=== PATIENT | female | born 1940 | race Caucasian/White ===

== ENCOUNTER 2016-08-16 16:23 | Inpatient (IN) | payer MEDICARE, OTHER ==
[~2016-08-16 16:23] MED LIST: LIDOCAINE 1% 5 ML (METHYLPARABEN FREE) EPI ONE
[2016-08-16] MEDS ORDERED: ATROPINE 1 MG/10 ML PFS IV ONE (16:57)
[2016-08-16 17:01] LABS: AUTOMATED BASOPHIL 1.6 % (0-2); AUTOMATED EOSINOPHIL 1.4 % (0-5); AUTOMATED LYMPH 26.1 % (17-44); AUTOMATED MONOCYTE 6.4 % (3-10); AUTOMATED NEUTROPHIL 64.5 % (45-76); MPV 8.1 fL (7.4-10.4)
--- NOTE | 2016-08-16 17:04 | EDPRACDOC ---
- General Information Chief Complaint: Arrhythmia Stated Complaint: SYNCOPE Time Seen by Provider: 08/16/16 16:28 Information Source: Patient Mode Of Arrival: Car Home Medications: Home Medications Atorvastatin Calcium 40 mg PO QHS 08/16/16 Lorazepam [Ativan] 0.25 - 0.5 mg PO BID PRN 08/16/16 Methimazole 5 mg PO DAILY 08/16/16 Allergies/Adverse Reactions: Allergies Allergy/AdvReac Type Severity Reaction Status Date / Time No Known Allergies Allergy Verified 08/16/16 16:43 - History of Present Illness Onset: YESTERDAY HPI: PASSED OUT, VERTIGO BEFORE. VERTIGO SEVERAL TIMES IN PAST SEVERAL WEEKS. NO CHEST PAIN, NO CHEST PRESSURE, NO SHORTNESS OF BREATH, NO LEG SWELLING, ABLE TO WORK AND DO DAILY ACTIVITIES PER NORMAL. IN FACT PATIENT WORKED ALL DAY TODAY BEFORE GOING TO GO SEE HER PRIMARY CARE PHYSICIAN AT PCP 'S OFFICE PATIENT WAS BRADYCARDIC AND REFERRED TO THE EMERGENCY DEPARTMENT. ED Past Medical History - History Reviewed Yes Nurses notes reviewed and agree except as marked - Patient Medical History Cardiac History: Reports: Hypercholesterolemia Psychological History: Reports: Anxiety. Denies: Depression Systemic History: Reports: Hyperthyroidism Surgical History: Reports: Tonsillectomy/Adnoidectomy - Social Medical History Smoking Status: Heavy tobacco smoker (5 or more cigarettes/day or daily pipe/ cigar) - Physical Exam Constitutional: Alert (Awake), No apparent distress Oriented to: Time, Person, Place Last recorded Vital Signs: Last Vital Signs Temp 97.9 F 08/16/16 16:38 Pulse 41 L 08/16/16 16:52 Resp 18 08/16/16 16:52 BP 195/75 H 08/16/16 16:52 Pulse Ox 99 08/16/16 16:52 Oxygen Pulse Oxygen Saturation 99 O2 Device Room Air Oxygen Flow Rate Fraction of Inspired Oxygen ( FIO2) - HEENT Head: Normal ( normocephalic) Eye Exam: Normal (PERRL, EOMI, Sclera white) Oropharynx: Normal (Pharynx:Moist without exudate,Gums-no swelling) Tympanic Membrane: Normal ENT EAC: Normal TMJ: Normal Nose: No Symptoms Reported (septum midline) Neck: Normal (FROM, trachea at midline) - Respiratory/Cardiovascular Respiratory: Normal - CTA (BBS clear to auscultation without adventitious sounds ) Cardiovascular: Bradycardia. negative: Diastolic murmur, Systolic murmur - GI Auscultation: Normal (NABS) Palpation: Normal (Soft,No rebound or guarding, non distended) Tenderness: Non tender Amin's Sign: Negative - Musculoskeletal Back: Normal (Non-Tender) Extremities: Normal (Normal tone, Pulses 2+ No cyanosis or edema, FROM) - Integumentary Skin: Normal, Warm, Dry Lymphatics: Normal (no adenopathy) - Neurologic Memory Impaired: Normal Motor Function: Normal (Normal tone, Pulses 2+ No cyanosis or edema, FROM) Cranial Nerve: Normal (CN II-X11 intact sensation, strength 5/5) Cerebellar: Normal Mood Description: Normal Perception: Normal - Results 08/16/16 16:50 08/16/16 16:50 - EKG EKG #1 EKG Time: 16:41 -: Yes EKG interpreted by me Rate: bpm: 44 [place]: Normal Rhythm: Junctional Block: 3 Hypertrophy: None ST: Nonsp EKG #2 EKG Time: 16:52 -: Yes EKG interpreted by me Rate: bpm: 42 [place]: Normal Rhythm: Junctional Block: 3 Hypertrophy: None ST: Nonsp - Diagnostic Imaging Chest Image interpreted by: Radiologist Patient Name: NICOLAS OTERO LOC: ED : 1940 AGE: 76 Order Date:08/16/16 Date of Service:09/27 Report # [id number] Ord Physician: Katalina Pugh MD Exam # [id number] Emergency Physician: Katalina Pugh MD Exam(s): [id number] RAD/DG CHEST PORTABLE CLINICAL DATA: Bradycardia. Syncope and dizziness. EXAM: PORTABLE CHEST - 1 VIEW COMPARISON: None. FINDINGS: Heart size is normal. There is mild prominence of the interstitium. No focal airspace disease is present. There is no edema or effusion to suggest failure. Emphysematous changes are noted. Degenerative changes are noted at the right shoulder. IMPRESSION: 1. No acute cardiopulmonary disease. 2. Emphysema. 3. Asymmetric degenerative changes of the right shoulder. Electronically Signed By: Vel Escalante M.D. On: 08/16/2016 17:08 Electronically Signed By: Vel Escalante MD Electronically Signed Date/Time: [id number] Dictate Date/Time: 08/16/161704 Technologist: Henry Sawyer Transcribed By: Dmitry Transcribed Date/Time: 08/16/16 1708 - Departure Final Diagnosis: Heart block AV complete, Hypertension Instructions: Chronic Hypertension (ED) Referrals: Kaleigh Garvey DO [Primary Care Provider] - One Week Decision to Admit Time: 18:02 Decision to admit date: 08/16/16 Decision to admit: from ED - Physician Consulted Cardiology Time Called: 17:04 Provider Called: Henry Carter Time Skating [employer] Returned Call: 17:04 (HOSP ADMIT, WILL SEE IN CONSULTATION) Hospitalist Time Called: 18:00 Provider Called: Armani Gonzalez Time Skating [employer] Returned Call: 18:02
--- NOTE | 2016-08-16 17:11 | DIRPT ---
CLINICAL DATA: Bradycardia. Syncope and dizziness. EXAM: PORTABLE CHEST - 1 VIEW COMPARISON: None. FINDINGS: Heart size is normal. There is mild prominence of the interstitium. No focal airspace disease is present. There is no edema or effusion to suggest failure. Emphysematous changes are noted. Degenerative changes are noted at the right shoulder. IMPRESSION: 1. No acute cardiopulmonary disease. 2. Emphysema. 3. Asymmetric degenerative changes of the right shoulder. Electronically Signed By: Vel Escalante M.D. On: 08/16/2016 17:08
[2016-08-16 17:14] LABS: BLOOD UREA NITROGEN 10 MG/DL (7-17); CALCIUM 9.6 MG/DL (8.4-10.2); CALCULATED OSMOLALITY 270 MOs/Kg (270-290); CHLORIDE 106 mEq/L (98-107); GLUCOSE 98 mg/dL (70-99); PARTIAL THROMB. TIME 22.8 SEC (22-35); SODIUM LEVEL 141 mEq/L (137-146); TOTAL PROTEIN 7.9 G/DL (6.3-8.2)
--- NOTE | 2016-08-16 18:27 | HIMCONSMED ---
Consultation Date: 08/16/16 Requesting Physician: Henry Carter Consulting Doctor: Armani Gonzalez Consult Reason: Medical Management PRIMARY CARE PROVIDER: Dr. Garvey HPI: The patient is a very active 76 yo woman with hyperthyroidism who presents after an episode of syncope yesterday. She still works at [employer] and has continued to work even after her syncopal episode. She was at home in her bedroom yesterday and was going to talk to her daughter on the phone, when she fell over and had a complete loss of consciousness; she reports she did hit her head. The syncope was not witnessed, but she thinks she was not unconscious for very long. She did not have any confusion afterward and she did not have any sensation beforehand that she was about to pass out. She waited until the next day to seek medical treatment; she went to her doctor's office and was found to have a heart rate in the 40s, and was sent to the emergency department for further management. She denies chest pain. She had not noticed that her heart rate was slow. Onset: yesterday for the syncope; the low heart rate onset is unknown. Duration : intermittent. Location: generalized. Character: complete sudden loss of consciousness. Alleviated by: Nothing. Exacerbated by: Nothing. Associated Symptoms: No chest pain or palpitations. No fever or chills. No shortness of breath or wheezing. She does feel fatigued. She reports she had an upper respiratory infection last week. Treatments: none at home except usual medications. Chief Complaint: syncope and low heart rate - Past Medical and Surgical History Cardiac History: Reports: Hypercholesterolemia GI/ History: Reports: Gastroesophageal Reflux Systemic History: Reports: Hyperthyroidism Psychological History: Reports: Anxiety. Denies: Depression Past Surgical History: Reports: Tonsillectomy/Adnoidectomy Allergies No Known Allergies Allergy (Verified 08/16/16 16:43) Home Medications Atorvastatin Calcium 40 mg PO QHS 08/16/16 Lorazepam [Ativan] 0.25 - 0.5 mg PO BID PRN 08/16/16 Methimazole 5 mg PO DAILY 08/16/16 - Social History Travel Outside of US in the Last 3 Months?: No Smoking Status: Heavy tobacco smoker (5 or more cigarettes/day or daily pipe/ cigar) Social History: Denies: Alcohol Use, Substance Use Disorder - Family History Reports: Cancer (PGM: cancer involving 50% of face. Mother: melanoma (no mets)) , Blood Disorders (Mother: severe anemia req transfusions. 77yo.), Other ( Father: rheumatoid arthritis, at end kidney disease, 97yo. Uncle: Vikki). Denies: Stroke, Cardiac Disorders MGM: in her 90s of old age. MGF: of TB PGF: of old age. Had a goiter. No known family history of PA, CHF, arrhythmia, stroke, diabetes, blood clots. - Review of Systems GENERAL: No Fever, chills, or diaphoresis. Positive for fatigue/malaise. HEENT: No ear pain or discharge. No nasal discharge or bleeding. No throat pain or swelling. No eye pain or eye redness. RESPIRATORY: No cough, wheezing, or shortness of breath. CARDIOVASCULAR: No chest pain or palpitations. GI: No abdominal pain, nausea, vomiting, diarrhea, constipation, or bloody stool. NEUROLOGICAL: No headache or focal weakness. INTEGUMENT: no rashes, itching, or lesions. LYMPHATIC SYSTEM: no lymph node swelling or pain. MUSCULOSKELETAL: no pain or joint swelling. GENITOURINARY: No dysuria or hematuria. ENDOCRINE: No polyuria or polydipsia. HEME: No chronic anemia, bleeding, or easy bruising. - Physical Exam Vital Signs: Initial Vitals Temperature 97.9 F 08/16/16 16:38 Pulse Rate 45 L 08/16/16 16:38 Respiratory Rate 20 08/16/16 16:38 Blood Pressure 223/83 H 08/16/16 16:38 Pulse Oxygen Saturation 98 08/16/16 16:38 Vital Signs - 24 hr 08/16/16 08/16/16 08/16/16 16:38 16:52 17:10 Temperature 97.9 F Pulse Rate 45 L 41 L 42 L Respiratory 20 18 16 Rate Blood Pressure 223/83 H 195/75 H 178/76 Pulse Oxygen 98 99 98 Saturation 08/16/16 08/16/16 17:40 18:10 Temperature Pulse Rate 42 L 40 L Respiratory 20 18 Rate Blood Pressure 177/117 H 216/79 H Pulse Oxygen 98 98 Saturation Weight: 57 kg Height: 5'1" BMI: 23.6 - Other Exam Other Exam Findings: GENERAL: Ill-appearing, well nourished, in acute distress. HEENT: Normocephalic, atraumatic; pupils equal and round. Nares patent, without discharge or bleeding. No oropharyngeal lesions or erythema. Mucous membranes are dry. NECK: is supple, no masses, trachea midline. RESPIRATORY: Clear to auscultation bilaterally. Chest wall movements are symmetric. No use of accessory muscles to breathe. Scattered wheezing. No rales, rhonchi. CARDIOVASCULAR: Normal S1, S2. Murmur 2/6 systolic. No rubs, or gallops. PMI non -displaced. Carotids: no carotid bruits. Marked bradycardia. DP pulses 2+ bilaterally. GI: soft, nontender, non-distended, normal active bowel sounds. No hepatosplenomegaly. INTEGUMENT: Clean, dry, and intact. No rashes. No lesions. MUSCULOSKELETAL: Moving all extremities. No cyanosis. No clubbing. Edema: trace to 1+ lower extremity edema bilaterally. NEUROLOGICAL: Cranial nerves 2-12 grossly intact. Motor 5/5 throughout. Reflexes : 2+ bilaterally. Babinski: toes downgoing bilaterally. Intact Finger to nose. Sensory grossly intact to light touch. Intact rapid alternating movements bilaterally. No pronator drift. PSYCHIATRIC: Fully oriented. Normal and appropriate affect. Frequently somnolent. LYMPHATIC: No cervical lymphadenopathy. No supraclavicular lymphadenopathy. - Lab Results Laboratory Results - last 24 hr 08/16/16 08/16/16 08/16/16 16:50 16:50 16:50 WBC 8.4 RBC 4.61 Hgb 14.7 Hct 42.5 MCV 92 MCH 32.0 MCHC 34.7 RDW 12.9 Plt Count 272 MPV 8.1 Neut % (Auto) 64.5 Lymph % (Auto) 26.1 [place] % (Auto) 6.4 Eos % (Auto) 1.4 Baso % (Auto) 1.6 Absolute Neuts (auto) 5.38 Absolute Lymphs (auto) 2.18 PT 10.7 INR 1.0 APTT 22.8 Sodium 141 Potassium 4.1 Chloride 106 Carbon Dioxide 26 Anion Gap 13 BUN 10 Creatinine 0.60 Estimated GFR (MDRD) > 60 Glucose 98 Calculated Osmolality 270 Calcium 9.6 Magnesium 2.10 Total Bilirubin 0.8 AST 30 ALT 30 Alkaline Phosphatase 100 Troponin I < 0.01 Total Protein 7.9 Albumin 4.2 - Diagnostic Findings EKG #1, at [facility]: 43 bpm. Sinus rhythm with complete heart block and wide QRS rhythm. Right bundle branch block. Reviewed EKG personally. EKG #2, at [facility]. 44 beats per minute. Sinus rhythm. Complete heart block. Wide QRS rhythm. Right bundle branch block. ST depression in lead V5. Reviewed EKG personally. EKG #3, at [facility]. 42 beats per minute. Complete heart block. Right bundle branch block. Reviewed EKG personally. Chest x-ray, viewed personally: EXAM: PORTABLE CHEST - 1 VIEW COMPARISON: None. FINDINGS: Heart size is normal. There is mild prominence of the interstitium. No focal airspace disease is present. There is no edema or effusion to suggest failure. Emphysematous changes are noted. Degenerative changes are noted at the right shoulder. IMPRESSION: 1. No acute cardiopulmonary disease. 2. Emphysema. 3. Asymmetric degenerative changes of the right shoulder. - Assessment (1) Heart block AV complete I44.2 - ATRIOVENTRICULAR BLOCK, COMPLETE Acute Present on Admission: Yes (2) Syncope R55 - SYNCOPE AND COLLAPSE Acute Present on Admission: Yes (3) COPD (chronic obstructive pulmonary disease) J44.9 - CHRONIC OBSTRUCTIVE PULMONARY DISEASE, UNSPECIFIED Acute Present on Admission: Yes (4) Hyperthyroidism E05.90 - THYROTOXICOSIS, UNSP WITHOUT THYROTOXIC CRISIS OR STORM Acute Present on Admission: Yes (5) Hypertension I10 - ESSENTIAL (PRIMARY) HYPERTENSION Acute Present on Admission: Yes (6) Tobacco abuse Z72.0 - TOBACCO USE Acute Present on Admission: Yes 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 - Plan (1) Heart block AV complete I44.2 - ATRIOVENTRICULAR BLOCK, COMPLETE Acute Patient found to be in complete heart block with heart rate in the 40s at her doctor's office. Patient is symptomatic in that she had a syncopal episode yesterday. Plan: Admitted by epic willow analyst, Dr. Carter. Received atropine in the ED. Will likely need IV isoproterenol. Further management per epic willow analyst. (2) Syncope R55 - SYNCOPE AND COLLAPSE Acute Likely due to complete heart block. Plan: Telemetry. Monitor in ICU. (3) COPD (chronic obstructive pulmonary disease) J44.9 - CHRONIC OBSTRUCTIVE PULMONARY DISEASE, UNSPECIFIED Acute Patient was unaware of her diagnosis of COPD. Plan: Scheduled nebs of Duoneb. PRN albuterol. No steroids at this time because she is likely at her baseline. Needs teaching regarding COPD and treatment. (4) Hyperthyroidism E05.90 - THYROTOXICOSIS, UNSP WITHOUT THYROTOXIC CRISIS OR STORM Acute Patient recently had medication change. Plan: Continue medication. Thyroid labs ordered. (5) Hypertension I10 - HYPERTENSION Acute Patient states she has hyperlipidemia but not hypertension. Plan: New diagnosis. Consider treatment, but given bradycardia will need to choose carefully. Will defer to epic willow analyst for treatment options. (6) Tobacco abuse Z72.0 - TOBACCO ABUSE Acute Plan: 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 In summary, this patient is acutely and critically ill. The patient requires treatment of vital organ failure and measures to prevent further life- threatening deterioration of condition. Discussed case with attending, Dr. Carter, and ICU nurses. I have spent 60 min in the critical care of this patient. Case Care Discussed with: Patient, Nursing Staff Total Time: 60 min Critical Care: Yes Code: 291
[2016-08-16 18:32] LABS: FREE T3 3.8 pg/mL (2.77-5.27); FREE T4 0.92 ng/dL (0.78-2.19)
[2016-08-16 18:46] LABS: hTSH 2.15 uIU/mL (0.5-4.67)
--- NOTE | 2016-08-16 19:06 | HISTPHYS ---
Travel Outside of US in the Last 3 Months?: No Smoking Status: Heavy tobacco smoker (5 or more cigarettes/day or daily pipe/ cigar) History of Present Illness: Pt is an active 76 yo WF with no prior cardiac hx who was well until yesterday. She got up to answer dtr's phone call, and without warning, lost consciousness. Came to almost immediately on BR floor, answered phone when dtr called back immediately. No injury. No sequelae. No other sx. NO chest pain, no recent SOLIZ, orthopnea, lightheadedness. She saw Dr. Garvey today, was found to be bradycardic with complete heart blcck, and sent to ER. No sx currently. Past Medical History: hyperthyroidism on methimazole, hyperlipidemia on statin Past Surgical History: tonsillectomy only Allergies No Known Allergies Allergy (Verified 08/16/16 16:43) Home Medication List Atorvastatin Calcium 40 mg PO QHS 08/16/16 [History] Lorazepam [Ativan] 0.25 - 0.5 mg PO BID PRN 08/16/16 [History] Methimazole 5 mg PO DAILY 08/16/16 [History] Family History: Parents both in advanced age, non-cardiac causes 5 sisters, two sill alive. 3 of non-cardiac causes. Social History: Traveled outside the [place] in the last 3 months? No Heavy tobacco smoker (5 or more cigarettes/day or daily pipe/cigar) , lives with , who follows with Dr. Urbina for coronary disease [facility] A Review of Systems: 10 system ROS completely negative except for very occasional episodes of vertigo. Physical Examination: Temperature: 97.9 F (08/16/16 16:38)HR: 40 (08/16/16 18:10)RR: 18 (08/16/16 18: 10)BP: 216/79 (08/16/16 18:10) SAT:98 (08/16/16 18:10) [] Physical Exam GEN: Age appropriate, in NAD. HR 42 BP 154/74 VS: as above HEENT: neck veins flat. thyroid diffusely enlarged CHEST: clear COR: RR, normal s1, s2, no s3 Gr 1/6 PABLO. Diastole quiet ABD: soft, non-tender, no organomegaly or mass EXTREM: rad, PT 2+ bilat, no edema SKIN: warm, dry, no exanthems NEURO: normal mental status , no focal motor deficit LAB/DI: [] Laboratory Results - last 24 hr 08/16/16 08/16/16 08/16/16 16:50 16:50 16:50 WBC 8.4 RBC 4.61 Hgb 14.7 Hct 42.5 MCV 92 MCH 32.0 MCHC 34.7 RDW 12.9 Plt Count 272 MPV 8.1 Neut % (Auto) 64.5 Lymph % (Auto) 26.1 [place] % (Auto) 6.4 Eos % (Auto) 1.4 Baso % (Auto) 1.6 Absolute Neuts (auto) 5.38 Absolute Lymphs (auto) 2.18 PT 10.7 INR 1.0 APTT 22.8 Sodium 141 Potassium 4.1 Chloride 106 Carbon Dioxide 26 Anion Gap 13 BUN 10 Creatinine 0.60 Estimated GFR (MDRD) > 60 Glucose 98 Calculated Osmolality 270 Calcium 9.6 Magnesium 2.10 Total Bilirubin 0.8 AST 30 ALT 30 Alkaline Phosphatase 100 Troponin I < 0.01 Total Protein 7.9 Albumin 4.2 TSH Free T4 Free T3 08/16/16 16:50 WBC RBC Hgb Hct MCV MCH MCHC RDW Plt Count MPV Neut % (Auto) Lymph % (Auto) [place] % (Auto) Eos % (Auto) Baso % (Auto) Absolute Neuts (auto) Absolute Lymphs (auto) PT INR APTT Sodium Potassium Chloride Carbon Dioxide Anion Gap BUN Creatinine Estimated GFR (MDRD) Glucose Calculated Osmolality Calcium Magnesium Total Bilirubin AST ALT Alkaline Phosphatase Troponin I Total Protein Albumin TSH 2.15 Free T4 0.92 Free T3 3.80 EKG: NSR with complete AV block, junctional escapte at 42/min, no acute changes otherwise. - Plan Plan: PLAN: admit to telemetry; bedrest and monitor echo in AM to r/o assoc structural heart disease anticipate perm pacer implant early next week (admitted Fri PM), here if possible, or in [address].
[2016-08-16] MEDS ORDERED: ATROPINE 1 MG/10 ML PFS IV PRN (20:05)
[2016-08-16] MEDS ORDERED: ONDANSETRON HCL 4 MG/2 ML VIAL IV PRN (21:05)
[2016-08-16] MEDS ORDERED: Aluminum;Magnesium;Simethicone 30 ML UDC PO PRN (21:05)
[2016-08-16] MEDS ORDERED: ALBUTEROL 0.083% 3 ML NEB NEB PRN (21:05)
[2016-08-16] MEDS ORDERED: GUAIFEN 100 MG-DEXTROMETH 10 MG PER 5 ML PO PRN (21:05)
[2016-08-16] MEDS ORDERED: BISACODYL 5 MG TAB PO PRN (21:05)
[2016-08-16] MEDS ORDERED: SENNA CONCENTRATE TAB PO PRN (21:05)
[2016-08-16] MEDS ORDERED: BENZONATATE 100 MG PERLES PO PRN (21:05)
[2016-08-16] MEDS ORDERED: PROMETHAZINE 25 MG/ML VIAL IV PRN (21:05)
[2016-08-16] MEDS ORDERED: ACETAMINOPHEN 325 MG SUPP PR PRN (21:05)
[2016-08-16] MEDS ORDERED: Vaccine Screening Complete SCH (22:00)
[2016-08-16] MEDS: NS 1,000 ML IV SCH (22:17)
[2016-08-16] MEDS: ATORVASTATIN 40 MG TAB PO SCH (22:17)
[2016-08-16] MEDS: TEMAZEPAM 15 MG CAP PO PRN (22:19)
[2016-08-17] MEDS: Albuterol/Ipratropium Neb 3 ML NEB NEB SCH ×3 (02:48→16:06)
[2016-08-17 04:19] LABS: MPV 7.7 fL (7.4-10.4)
[2016-08-17 04:24] LABS: BLOOD UREA NITROGEN 10 MG/DL (7-17); CALCIUM 9.3 MG/DL (8.4-10.2); CALCULATED OSMOLALITY 272 MOs/Kg (270-290); CHLORIDE 108 mEq/L (98-107); GLUCOSE 96 mg/dL (70-99); LDL (calc.) 168.4 MG/DL (<100); SODIUM LEVEL 142 mEq/L (137-146); VLDL (calc.) 20.6 MG/DL (5-40)
[2016-08-17] MEDS: METHIMAZOLE 5 MG TAB PO SCH (09:42)
--- NOTE | 2016-08-17 10:27 | GENMEDPROG ---
Chief Complaint: Complete heart block Subjective Note: Patient is currently asymptomatic, denies any chest pain or dizziness. Seen in the ICU on telemetry. Atropine is at the bedside. Notes Reviewed: Yes: Events from last night noted and discussed with Clinical Staff Current Medication List: Reviewed DVT Prophylaxis: Yes - Physical Examination Vital Signs and I&O: Last Vital Signs Temp 98.2 F 08/17/16 07:00 Pulse 51 L 08/17/16 09:46 Resp 16 08/17/16 07:00 BP 168/72 08/17/16 08:00 Pulse Ox 97 08/17/16 07:00 Oxygen Pulse Oxygen Saturation 97 O2 Device Room Air Oxygen Flow Rate Fraction of Inspired Oxygen ( FIO2) Intake & Output 08/15/16 08/16/16 08/17/16 08/18/16 06:59 06:59 06:59 06:59 Intake Total 946 504 Output Total 475 350 Balance 471 154 Patient's weight 56.245 kg General: Alert, Oriented x3, No acute distress, Well appearing, Well nourished, Other (Normal and appropriate affect) HEENT: EOMI (Sclera white) Neck: Normal Trachea alignment, Normal inspection Lymphatics: Normal (no adenopathy) Respiratory: Normal - CTA (BBS clear to auscultation without adventitious sounds ) Cardiovascular: Other (Regular and bradycardic. No murmurs.) GI: Normal bowel sounds, Soft, Non tender (non distended) Extremities/Musculoskeletal: Other (Normal Tone). negative: Edema, Cyanosis Lab/DI/Studies Reviewed: Laboratory Tests 08/17/16 08/17/16 04:06 04:06 WBC 6.9 Hgb 13.3 Hct 39.5 Potassium 3.8 BUN 10 Creatinine 0.60 Cholesterol 225 H LDL Cholesterol, Calc 168.4 H - Assessment (1) Heart block AV complete Acute I44.2 - ATRIOVENTRICULAR BLOCK, COMPLETE Comment/Plan: Patient was admitted for this by the Cardiology Service. Atropine is at the bedside, echocardiogram is pending this morning, and she will need a pacemaker, to be placed at this hospital or at Echo. (2) COPD (chronic obstructive pulmonary disease) Acute J44.9 - CHRONIC OBSTRUCTIVE PULMONARY DISEASE, UNSPECIFIED Comment/ Plan: Continue present care and home medications. No evidence of acute exacerbation of her COPD. (3) Hypertension Acute I10 - ESSENTIAL (PRIMARY) HYPERTENSION Comment/Plan: Continue home medications. (4) Hyperthyroidism Acute E05.90 - THYROTOXICOSIS, UNSP WITHOUT THYROTOXIC CRISIS OR STORM Comment/Plan: Continue current medical management, thyroid studies are at goal. (5) Syncope Acute R55 - SYNCOPE AND COLLAPSE Comment/Plan: Due to complete heart block. Fall precautions.
--- NOTE | 2016-08-17 11:10 | CAPUECHO ---
INDICATION: COMPLETE HEART BLOCK HEIGHT: 154.9 cm (5 ft 1.0 in) WEIGHT: 56.7 kg (125.0 lbs) BP: 181/67 BSA: 1.351244 m MEASUREMENTS 2D RVIDd: 3.1 cm LVOT Diam: 1.9 cm LA Diam: 3.5 cm EF Biplane: 66.37 % LAESV MOD A4C: 50.1 ml LAESV MOD A2C: 43.8 ml LAESV Index (A-L): 34.13 ml/m M-MODE IVSd: 0.9 cm LVIDd: 4.8 cm LVPWd: 1.0 cm LVIDs: 3.1 cm EF(Teich): 63 % Ao Diam: 3.0 cm LA Diam: 3.7 cm DOPPLER MV E Edmundo: 0.93 m/s MV A Edmundo: 1.03 m/s MV PHT: 60.33 ms MVA By PHT: 3.65 cm LVOT Vmax: 1.35 m/s AV Vmax: 1.58 m/s KELSEY Vmax, Pt: 2.36 cm TR Vmax: 1.53 m/s TR maxP mmHg RVSP: 20.45 mmHg FINDINGS ------- Procedure:2D images, m-mode, color and spectral Doppler were obtained and reviewed. ECG rhythm:Resting bradycardia (HR<60bpm). Complete heart block, AV dissociation Study quality:This was a technically good study. Left Ventricle:The left ventricular size is normal. Left ventricular wall thickness is normal. T here is normal global left ventricular contractility. Overall left ventricular systolic function i s normal with, an EF between 60 - 65 %. Right Ventricle:The right ventricle is normal in size and function. Left Atrium:Left atrium is mildly dilated by volume. Right Atrium:The right atrium is normal in size and function. Aortic Valve:The aortic valve is trileaflet with minimal Mitral Valve:Normal appearing mitral valve. There is trace mitral regurgitation. Tricuspid Valve:The tricuspid valve appears structurally normal. Trace tricuspid regurgitation pre sent. The right ventricular systolic pressure, as measured by Doppler, is 20mmHg. Pulmonic Valve:The pulmonic valve is normal. There is no pulmonic regurgitation present. Aorta:The aortic root, ascending aorta and aortic arch appear normal. IVC:Borderline dilatation of inferior vena cava with normal inspiratory collapse. Pericardium:There is no pericardial effusion. CONCLUSIONS 1. normal left ventricular size/function 2. borderline/mild left atrial dilatation, in complete heart block 3. minimal aortic sclerosis - no significant valvular disease or shunt 4. julien l right heart size/function, only trace TR, normal pulm artery pressure suggested Electronically Signed By: Henry Carter MD-- Electronically Signed On: 11:02:04
[2016-08-17] MEDS: NS 1,000 ML IV SCH ×2 (11:48→22:01)
--- NOTE | 2016-08-17 12:38 | PCM.CARD ---
- Subjective Reason for visit: f/u complete heart block Subj: feels well, no lightheadedness. No CP or dyspnea Vital Signs: Last Vital Signs Temp 97.9 F 08/17/16 11:00 Pulse 45 L 08/17/16 11:52 Resp 16 08/17/16 11:00 BP 160/71 08/17/16 11:00 Pulse Ox 98 08/17/16 11:00 PE: Physical Exam GEN: appears well, NAD VS: as above HEENT: neck veins flat, CHEST: clear COR: RR, soft PABLO ABD: soft, non-tender EXTREM: Rad, PT 2+ bilat, no edema SKIN: warm, dry NEURO: alert, no focall deficit Lab/DI Results Reviewed: EKG/ tele overnight: complete heart block, no HR below 40 or long pauses. Echo today: structurally normal heart, normal biventricular function, no valve disease IMPRESSION: complete heart block, asx at bedrest - Plan PLAN: may be OOB with assist of 2. d/w Dr. Barlow. Anticipate perm pacer implant here on Saturday 08/19
[2016-08-17] MEDS: TEMAZEPAM 15 MG CAP PO PRN (22:00)
[2016-08-17] MEDS: ATORVASTATIN 40 MG TAB PO SCH (22:00)
[2016-08-18] MEDS: Albuterol/Ipratropium Neb 3 ML NEB NEB SCH ×3 (00:21→16:16)
[2016-08-18] MEDS: METHIMAZOLE 5 MG TAB PO SCH (08:00)
--- NOTE | 2016-08-18 09:13 | GENMEDPROG ---
Chief Complaint: Sinus bradycardia Subjective Note: Resting comfortably this morning, no acute events. Discussed with patient and nursing staff. Notes Reviewed: Yes: Events from last night noted and discussed with Clinical Staff Current Medication List: Reviewed DVT Prophylaxis: Yes - Physical Examination Vital Signs and I&O: Last Vital Signs Temp 97.9 F 08/18/16 08:00 Pulse 40 L 08/18/16 08:15 Resp 18 08/18/16 06:00 BP 186/72 H 08/18/16 08:00 Pulse Ox 97 08/18/16 05:00 Oxygen Pulse Oxygen Saturation 97 O2 Device Room Air Oxygen Flow Rate Fraction of Inspired Oxygen ( FIO2) Intake & Output 08/16/16 08/17/16 08/18/16 08/19/16 06:59 06:59 06:59 06:59 Intake Total 946 1856 320 Output Total 475 2425 350 Balance 471 -569 -30 Patient's weight 56.245 kg 55.338 kg General: Alert, Oriented x3, No acute distress, Well appearing, Well nourished, Other (Normal and appropriate affect) HEENT: EOMI (Sclera white) Neck: Normal Trachea alignment, Normal inspection Lymphatics: Normal (no adenopathy) Respiratory: Normal - CTA (BBS clear to auscultation without adventitious sounds ) Cardiovascular: Other (Regular and bradycardic. No murmurs.) GI: Normal bowel sounds, Soft, Non tender (non distended) Extremities/Musculoskeletal: Other (Normal Tone). negative: Edema, Cyanosis Lab/DI/Studies Reviewed: Laboratory Tests 08/17/16 04:06 Potassium 3.8 BUN 10 Creatinine 0.60 - Assessment (1) Heart block AV complete Acute I44.2 - ATRIOVENTRICULAR BLOCK, COMPLETE Comment/Plan: Patient was admitted for this by the Cardiology Service. Atropine is at the bedside, echocardiogram is pending this morning, and she will need a pacemaker, to be placed at this hospital or at [facility]. (2) COPD (chronic obstructive pulmonary disease) Acute J44.9 - CHRONIC OBSTRUCTIVE PULMONARY DISEASE, UNSPECIFIED Comment/ Plan: Continue present care and home medications. No evidence of acute exacerbation of her COPD. (3) Hypertension Acute I10 - ESSENTIAL (PRIMARY) HYPERTENSION Comment/Plan: Continue home medications. (4) Hyperthyroidism Acute E05.90 - THYROTOXICOSIS, UNSP WITHOUT THYROTOXIC CRISIS OR STORM Comment/Plan: Continue current medical management, thyroid studies are at goal. (5) Syncope Acute R55 - SYNCOPE AND COLLAPSE Comment/Plan: Due to complete heart block. Fall precautions. - Plan Continue present care, no medical issues to contraindicate pacemaker placement in the morning. Patient will be NPO after midnight.
--- NOTE | 2016-08-18 12:28 | PCM.CARD ---
- Subjective Reason for visit: complete heart block Subj: feels fine. Rocael OOB ok. NO lightheadedness. No dyspnea Vital Signs: Last Vital Signs Temp 98.5 F 08/18/16 11:00 Pulse 65 08/18/16 11:44 Resp 18 08/18/16 11:00 BP 150/61 08/18/16 11:00 Pulse Ox 99 08/18/16 11:00 Intake & Output 08/15/16 08/16/16 08/17/16 08/18/16 23:59 23:59 23:59 23:59 Intake Total 360 2236 971 Output Total 225 0575 1250 Balance 135 -289 -279 Patient's weight 56.699 kg 56.245 kg 55.338 kg PE: Physical Exam GEN: appears well, NAD VS: as above HEENT: no JVD CHEST: clear COR: RR, soft PABLO, no gallop ABD: soft, non-tender EXTREM: no edema SKIN: warm, dry NEURO: alert, no focal motor deficit or tremor Lab/DI Results Reviewed: No new labs. Tele: complete heart block, junctional escape at 40s/min, no long pauses occas/frequ PVCs IMPRESSION: persistent complete heart block s/p syncopal episode - Plan PLAN: perm pacer implant with Dr. Lazcano in AM Complications incl infection, PTx reviewed, pt understands and wishes to proceed.
[2016-08-18] MEDS: CHLORHEXIDINE (HIBICLENS) 4 OZ BOTTLE TOP ONE (12:51)
[2016-08-18] MEDS ORDERED: D5W 1,000 ML IV SCH (13:00)
--- NOTE | 2016-08-18 13:26 | CAPUEKG ---
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 Abnormal ECG Electronically Signed On 08-18-16 13:25:42 EST by Henry Carter [id number]> [id number]
[2016-08-18] MEDS: ATORVASTATIN 40 MG TAB PO SCH (20:16)
[2016-08-18] MEDS ORDERED: CHLORHEXIDINE (HIBICLENS) 4 OZ BOTTLE TOP ONE (21:00)
[2016-08-18] MEDS: NS 1,000 ML IV SCH (21:31)
[2016-08-18] MEDS: LORAZEPAM 0.5 MG TAB PO PRN (22:19)
[2016-08-18] MEDS: TEMAZEPAM 15 MG CAP PO PRN (23:15)
[2016-08-19] MEDS: Albuterol/Ipratropium Neb 3 ML NEB NEB SCH ×4 (00:56→23:55)
[2016-08-19] MEDS: CHLORHEXIDINE (HIBICLENS) 4 OZ BOTTLE TOP ONE (06:29)
[2016-08-19] MEDS ORDERED: Cefazolin 2gm/50 ml D5W 2 GM/50 ML RTU IV ONE ×3 (08:00→15:00)
[2016-08-19] MEDS: METHIMAZOLE 5 MG TAB PO SCH (08:13)
--- NOTE | 2016-08-19 08:55 | GENMEDPROG ---
Subjective Note: Patient in bed responsive follows commands, denies any syncope or near syncope, denies feeling dizzy lightheaded. Denies any chest pain palpitations PND orthopnea. Notes Reviewed: Yes: Events from last night noted and discussed with Clinical Staff Current Medication List: Reviewed Currently: Reports: Cough DVT Prophylaxis: Yes - Physical Examination Vital Signs and I&O: Last Vital Signs Temp 97.8 F 08/19/16 08:31 Pulse 41 L 08/19/16 08:39 Resp 08/19/16 08:31 BP 134/60 08/19/16 08:31 Pulse Ox 99 08/19/16 06:00 Oxygen Pulse Oxygen Saturation 99 O2 Device Room Air Oxygen Flow Rate Fraction of Inspired Oxygen ( FIO2) Intake & Output 08/16/16 08/17/16 08/18/16 08/19/16 23:59 23:59 23:59 23:59 Intake Total 360 2236 1747 740 Output Total 225 1845 3150 690 Balance 135 289 -7423 50 Patient's weight 56.245 kg 55.338 kg 55.837 kg General: Alert, Oriented x3, Cooperative, No acute distress, Well appearing, Well nourished, Other (Normal and appropriate affect) HEENT: Normal, PERRLA, EOMI (Sclera white), Anicteric Sclera Neck: Normal Trachea alignment, Normal inspection, No Masses palpable, Limited range of motion Lymphatics: Normal (no adenopathy) Respiratory: Normal - CTA (BBS clear to auscultation without adventitious sounds ), Diminished, Rhonchi Cardiovascular: Regular rate, Normal S1, Normal S2, Murmurs, Other (Regular and bradycardic. No murmurs.) GI: Normal bowel sounds, Soft, Non tender (non distended) Extremities/Musculoskeletal: DJD, Other (Normal Tone). negative: Edema, Cyanosis Skin: Warm,Dry and Intact, No rashes, No breakdown, No significant lesion Neurological: Normal speech Psych/Mental Status: Anxious Last Vital Signs Temp 97.8 F 08/19/16 08:31 Pulse 41 L 08/19/16 08:39 Resp 08/19/16 08:31 BP 134/60 08/19/16 08:31 Pulse Ox 99 08/19/16 06:00 08/17/16 04:06 08/17/16 04:06 - Assessment (1) Heart block AV complete Acute I44.2 - ATRIOVENTRICULAR BLOCK, COMPLETE Comment/Plan: For permanent pacemaker placement. Keep atropine and external pacemaker at the bedside.. Monitor hemodynamics in ICU setting (2) Hypertension Acute I10 - ESSENTIAL (PRIMARY) HYPERTENSION Qualifiers: Hypertension type: essential hypertension Qualified Code(s): I10 - Essential (primary) hypertension Comment/Plan: Continue home medications. Stable on meds (3) Hyperthyroidism Acute E05.90 - THYROTOXICOSIS, UNSP WITHOUT THYROTOXIC CRISIS OR STORM Comment/Plan: Continue current medical management, thyroid studies are at goal. Continue methimazole (4) Dyslipidemia Acute E78.5 - HYPERLIPIDEMIA, UNSPECIFIED Comment/Plan: Patient will require statin therapy (5) COPD (chronic obstructive pulmonary disease) Acute J44.9 - CHRONIC OBSTRUCTIVE PULMONARY DISEASE, UNSPECIFIED Qualifiers: COPD type: emphysema Emphysema type: unspecified Qualified Code(s): J43.9 - Emphysema, unspecified Comment/Plan: Pulmonary status stable. Case Care Discussed with: Patient, Consultants, Family, Nursing Staff, Director Trading Education/Counseling Given To: Patient Education/Counseling Given Regarding: Diagnosis, Treatment, Prognosis, Follow Up Total Time: 50 min . Critical Care: No Code: 80900 (12+)
[2016-08-19] MEDS: NS 1,000 ML IV SCH (11:02)
[2016-08-19] MEDS ORDERED: MIDAZOLAM 2 MG/2 ML VIAL ONE (13:11)
[2016-08-19] MEDS ORDERED: FENTANYL 100 MCG/2 ML VIAL ONE (13:11)
[2016-08-19] MEDS ORDERED: LIDOCAINE 1% 30 ML VIAL (PRESERVATIVE FREE) ONE (13:11)
[2016-08-19] MEDS ORDERED: CEFAZOLIN 1 GM in D5W 100 ML IV ONE (14:10)
[2016-08-19] MEDS ORDERED: Cefazolin 1gm/50 ml D5W 1 GM/50 ML RTU IV ONE (15:00)
--- NOTE | 2016-08-19 16:05 | HIMOPRPT ---
DATE OF PROCEDURE: 08/19/2016 PREOPERATIVE DIAGNOSIS: COMPLETE HEART BLOCK POSTOPERATIVE DIAGNOSIS: The same PROCEDURE: Dual-chamber pacemaker implantation SURGEON: Indio Barlow ANESTHESIA: Local lidocaine 1% ESTIMATED BLOOD LOSS: 10 cc INDICATIONS FOR PROCEDURE: Complete heart block DESCRIPTION OF PROCEDURE: Pacemaker implantation procedure: Indication for procedure: Complete heart block The patient was brought to the vascular lab in a fasting state. Antibiotic was used for prophylaxis against infection before procedure. Site was prepared in usual fashion. 1% lidocaine was used to anesthetize the area below the left clavicle. 1-1/2 inch long incision was made above the groove between the deltoid and pectoris muscle on the left side using blunt as well as sharp dissection paying special attention to controlling bleeding I was able to expose large cephalic vein using cut-down technique I did not find any visible vein. More local anesthetic was given and then under ultrasound guidance I was able to puncture subclavian vein however wire did not want to pass. I did 2 trials and after that I ask interventional radiologist for assistance. With some manipulation he was able to insert wire into this of late and veins. After that using standard technique I was able to introduce a J-shaped wire into the central venous system. Dilator with peel off sheet was used to insert a ventricle lead into the central venous system similar technique was used to introduce the atrial lead which was active fixation lead to the central venous system . After that the ventricle lead (by Medtronic 4092-58 cm serial number [id number] Medtronic 077116 cm serial number [id number]) was placed into the right ventricle apex , parameters at implantation time where : R-wave 6 mV mV , pacing threshold 0.4 Volts of 0.4 milliseconds, impedance was 688 Ohms, 10 Volts pacing was negative for diaphragmatic stimulation. The atrial lead (by Medtronic 501140 cm serial number [id number]) was placed in the right atrial lateral wall. Parameters at implantation time: A-wave 5.3 mV, pacing threshold 0.7 Volts of 0.4 millisecond, impedance was 649 Ohms, 10 Volts pacing was negative for diaphragmatic stimulation. The leads were securely fastened into the pectoralis muscle using 0 silk suture material. The pocket was formed on the pectoralis muscle using blunt dissection after some extra lidocaine was given then pacemaker by the Medtronic Adapta L serial number [id number] was placed into the pocket and sutured into the pectoralis muscle using 0 silk suture material. After that hemostasis was obtained and the subcut tissue was closed using 2-0 Vicryl in interrupted fashion on multiple layers. Skin was closed using continuous stitch with Vicryl 4-0 suture material. Steri-Strips applied pressure dressing. Patient left the vascular laboratory without any complications, Conclusions: Successful dual-chamber pacemaker implantation with Medtronic device via the left subclavian stick.
[2016-08-19] MEDS: hydrALAZINE 10 MG TAB PO PRN ×2 (16:47→23:23)
--- NOTE | 2016-08-19 17:13 | DIRPT ---
CLINICAL DATA: Pacemaker placement, complete heart block EXAM: PORTABLE CHEST 1 VIEW COMPARISON: Portable exam 1657 hours compared to 08/16/2016 FINDINGS: Interval placement of LEFT subclavian sequential transvenous pacemaker with leads projecting over RIGHT atrium and RIGHT ventricle. Normal heart size, mediastinal contours and pulmonary vascularity. Lungs minimally hyperinflated but clear. No pleural effusion or pneumothorax. Bones demineralized. IMPRESSION: No pneumothorax following pacemaker insertion. Electronically Signed By: Addison Ambrocio M.D. On: 08/19/2016 17:10
[2016-08-19] MEDS: Cefazolin 2gm/50 ml D5W 2 GM/50 ML RTU IV SCH (18:00)
[2016-08-19] MEDS: ACETAMINOPHEN 325 MG/TAB TABLET PO PRN (18:00)
[2016-08-19] MEDS: ATORVASTATIN 40 MG TAB PO SCH (20:41)
[2016-08-19] MEDS: TEMAZEPAM 15 MG CAP PO PRN (22:51)
[2016-08-20] MEDS: Cefazolin 2gm/50 ml D5W 2 GM/50 ML RTU IV SCH ×2 (02:09→09:49)
[2016-08-20 06:50] VITALS: BMI 23.1
[2016-08-20 06:52] VITALS: BP 168/74; TEMP 98.2
--- NOTE | 2016-08-20 08:42 | PCM.DCS92 ---
- Final/Secondary Discharge Diagnosis (1) Heart block AV complete Acute I44.2 - ATRIOVENTRICULAR BLOCK, COMPLETE Present on Admission: Yes Comment: Status post pacemaker placement. Device has been interrogated this morning and is working just fine. (2) Hypertension Acute I10 - ESSENTIAL (PRIMARY) HYPERTENSION Present on Admission: Yes essential hypertension I10 - Essential (primary) hypertension Comment: Continue home medications. Stable on meds. Start Benicar 20 mg p.o. daily continue no salt diet (3) Hyperthyroidism Acute E05.90 - THYROTOXICOSIS, UNSP WITHOUT THYROTOXIC CRISIS OR STORM Present on Admission: Yes Comment: Continue current medical management, thyroid studies are at goal. Continue methimazole (4) Dyslipidemia Chronic E78.5 - HYPERLIPIDEMIA, UNSPECIFIED Present on Admission: Yes Comment: Continue Lipitor and fish oil (5) COPD (chronic obstructive pulmonary disease) Acute J44.9 - CHRONIC OBSTRUCTIVE PULMONARY DISEASE, UNSPECIFIED Present on Admission: Yes emphysema unspecified J43.9 - Emphysema, unspecified Comment: Pulmonary status stable. Discharge Disposition: Home Discharge Condition: Improved Cognitive Discharge Status: Unimpaired Fuctional Discharge Status: Walker Assistance Physician Follow up/Referrals: Kaleigh Garvey DO [Primary Care Provider] - One Week Indio Barlow MD [Staff Physician] - Listed Time Home Medications / New Prescriptions: New Olmesartan Medoxomil [Benicar] 20 mg PO DAILY #60 tablet Krill Oil/[place]-3/Dha/Epa [Fish Oil with Krill Softgel] 2 each PO TIDAC #120 capsule. Oxycodone Immediate Release [Oxycodone Immediate Release (OxyIR)] 2.5 mg PO Q6H PRN #20 tab PRN Reason: Pain Levalbuterol [Xopenex Hfa] 15 gm IH Q6 #2 inh Continue Methimazole 5 mg PO DAILY Atorvastatin Calcium 40 mg PO QHS Lorazepam [Ativan] 0.25 - 0.5 mg PO BID PRN PRN Reason: PANIC ATTACK O2 Device: Room Air Diet at Discharge: Heart Healthy, Low Salt, High Fiber Activity: Limited, No Heavy Lifting, Pelvic Rest Call Office For: Wound is Draining Pus, Fever over 101 F, Wound is Painful Discontinue use of:: Alcohol, All Illegal Substances, All Types of Tobacco - DC Summary Notes Hospital Course Note:: Discharge summary on patient named NICOLAS OTERO admitted to [facility] on 08/16/16 by Henry Carter MD. Date of discharge is []. Patient was initially brought to emergency room on August 16 for evaluation of syncopal episode. Patient reported that while at home fairly abruptly she has passed out and lost consciousness completely, fell to the ground and walk up on the floor. She denied any seizure activity ,urinary or fecal incontinence associated with the symptoms. Following day she went to see her PCP and was found to be bradycardic with pulse in the 40s. Please refer to the admission for further details. ED workup was undertaken and EKG showed complete heart block with heart rate 43 beats per minute and wide QRSs.. Patient was admitted to ICU to [facility], medical consultation was obtained from [facility] hospitalist. She remained bradycardic but hemodynamically stable ,there was no further episodes of syncope or near syncope. She required p.r.n. medications for elevated blood pressure. On August 19 patient has undergone permanent pacemaker placement without any complications. Outpatient regimen for chronic medical conditions was continued. Lipid panel was obtained which showed LDL of 168 total cholesterol of 225 and HDL of 36. Her TSH was 2.15. After procedure and activity level was advanced and by time of discharge patient is able to ambulate freely with no assistance. Given persistently elevated blood pressure Benicar was added to her therapy the care of the family her PCP.. Her labs were monitored and CBC and CMP remained within normal limits. On August 20 patient has been cleared for discharge by inside meter tester and in clinically stable improved condition she has been discharged home to care of her PCP. Total Time: 40 min . Code: 61033 (>30min.) - Physical Exam Vital Signs: Last Vital Signs Temp 98.2 F 08/20/16 06:51 Pulse 66 08/20/16 07:43 Resp 20 08/20/16 06:51 BP 168/74 08/20/16 06:51 Pulse Ox 96 08/19/16 16:22 Oxygen Pulse Oxygen Saturation 96 O2 Device Room Air Oxygen Flow Rate Fraction of Inspired Oxygen ( FIO2) Constitutional: Alert (Awake), No apparent distress Oriented to: Time, Person, Place - HEENT Head: Normal ( normocephalic) Eye: Normal (PERRL, EOMI, Sclera white) Oropharynx: Normal (Pharynx:Moist without exudate,Gums-no swelling) Tympanic Membrane: Normal ENT EAC: Normal TMJ: Normal Nose: No Symptoms Reported (septum midline) - Respiratory/Cardiovascular Respiratory: Normal - CTA (BBS clear to auscultation without adventitious sounds ), Diminished, Rhonchi Cardiovascular: Normal, Systolic murmur - GI Auscultation: Normal (NABS) Palpation: Normal (Soft,No rebound or guarding, non distended) Tenderness: Non tender Amin's Sign: Negative Rectal Exam: Deferred - Musculoskeletal Back: Normal (Non-Tender) Extremities: Normal (Normal tone, Pulses 2+ No cyanosis or edema, FROM) - Integumentary Skin: Normal, Warm, Dry Lymphatics: Normal (no adenopathy) - Neurologic Memory Impaired: Normal Motor Function: Normal Cranial Nerve: Normal Cerebellar: Normal Mood Description: Normal Perception: Normal - Other Exam Other Exam Findings: Allergies No Known Allergies Allergy (Verified 08/16/16 16:43) 08/17/16 04:06 08/17/16 04:06 Last Vital Signs Temp 98.2 F 08/20/16 06:51 Pulse 66 08/20/16 07:43 Resp 20 08/20/16 06:51 BP 168/74 08/20/16 06:51 Pulse Ox 96 08/19/16 16:22 Discharge Home Medication List Atorvastatin Calcium 40 mg PO QHS 08/16/16 [History Confirmed 08/16/16] Lorazepam [Ativan] 0.25 - 0.5 mg PO BID PRN 08/16/16 [History Confirmed 08/16/16 ] Methimazole 5 mg PO DAILY 08/16/16 [History Confirmed 08/16/16] Krill Oil/[place]-3/Dha/Epa [Fish Oil with Krill Softgel] 2 each PO TIDAC #120 capsule. 08/20/16 [Rx] Levalbuterol [Xopenex Hfa] 15 gm IH Q6 #2 inh 08/20/16 [Rx] Olmesartan Medoxomil [Benicar] 20 mg PO DAILY #60 tablet 08/20/16 [Rx] Oxycodone Immediate Release [Oxycodone Immediate Release (OxyIR)] 2.5 mg PO Q6H PRN #20 tab 08/20/16 [Rx] New Discharge Medications (Rx) Krill Oil/[place]-3/Dha/Epa [Fish Oil with Krill Softgel] 2 each PO TIDAC #120 capsule. 08/20/16 [Rx] Levalbuterol [Xopenex Hfa] 15 gm IH Q6 #2 inh 08/20/16 [Rx] Olmesartan Medoxomil [Benicar] 20 mg PO DAILY #60 tablet 08/20/16 [Rx] Oxycodone Immediate Release [Oxycodone Immediate Release (OxyIR)] 2.5 mg PO Q6H PRN #20 tab 08/20/16 [Rx] Home Medications Atorvastatin Calcium 40 mg PO QHS 08/16/16 Lorazepam [Ativan] 0.25 - 0.5 mg PO BID PRN 08/16/16 Methimazole 5 mg PO DAILY 08/16/16 Krill Oil/[place]-3/Dha/Epa [Fish Oil with Krill Softgel] 2 each PO TIDAC #120 capsule. 08/20/16 Levalbuterol [Xopenex Hfa] 15 gm IH Q6 #2 inh 08/20/16 Olmesartan Medoxomil [Benicar] 20 mg PO DAILY #60 tablet 08/20/16 Oxycodone Immediate Release [Oxycodone Immediate Release (OxyIR)] 2.5 mg PO Q6H PRN #20 tab 08/20/16
[2016-08-20] MEDS: Albuterol/Ipratropium Neb 3 ML NEB NEB SCH (08:49)
[2016-08-20] MEDS: METHIMAZOLE 5 MG TAB PO SCH (09:52)
[2016-08-20] MEDS: LORAZEPAM 0.5 MG TAB PO PRN (10:40)
[2016-08-20] MEDS: ACETAMINOPHEN 325 MG/TAB TABLET PO PRN (11:23)
[2016-08-20 11:32] VITALS: PULSE 67
--- NOTE | 2016-08-20 12:10 | PCM.CARD ---
- Subjective Reason for visit: Follow up after pacemaker implantation Doing well, denies have any problems some tenderness in the area of pacemaker. Vital Signs: Last Vital Signs Temp 98.2 F 08/20/16 06:51 Pulse 67 08/20/16 11:31 Resp 20 08/20/16 06:51 BP 168/74 08/20/16 06:51 Pulse Ox 96 08/19/16 16:22 PE: General Appearance: Well developed. Well nourished. In no acute distress. Lungs: Chest was not overinflated. Clear to auscultation. Cardiovascular: Jugular Venous Distention: JVD not increased. Heart Rate And Rhythm: Normal. Heart Sounds: Normal. Murmurs: No murmurs were heard. Carotid Arteries: Carotid pulses were normal. No bruit in the carotid artery. Edema: Not present. Lower extremities pulses normal (including femoral popliteal and dorsalis pedis) . Musculoskeletal System: General/bilateral: No cyanosis of the fingers. Neurological: Oriented to time, place, and person. Nails: No clubbing of the fingernails. Dressing change. Wound look good few bruises no discharge no redness no swelling. - Assessment/Plan (1) Heart block AV complete Acute I44.2 - ATRIOVENTRICULAR BLOCK, COMPLETE Present on Admission: Yes Comment/Plan: This being addressed with dual-chamber pacemaker implantation. Procedure was done yesterday uneventful. (2) Pacemaker Acute Z95.0 - PRESENCE OF CARDIAC PACEMAKER Comment/Plan: Doing well pacemaker dressing change wound look good. (3) Hypertension Acute I10 - ESSENTIAL (PRIMARY) HYPERTENSION Present on Admission: Yes essential hypertension I10 - Essential (primary) hypertension Comment/Plan: Medication has being adjusted. (4) Syncope Acute R55 - SYNCOPE AND COLLAPSE Present on Admission: Yes Comment/Plan: That being addressed with pacemaker implantation (5) Tobacco abuse Acute Z72.0 - TOBACCO USE Present on Admission: Yes Comment/Plan: She was told to quit.
== END 2016-08-20 12:36 | disposition home or self-care (01) | DRG 244 ==
LOC: ED 16:23 → ICU 19:29
PROVIDERS: ADMIT Internal Medicine Cardiovascular Disease; ATTEND Internal Medicine Cardiovascular Disease
PROC: B246ZZZ Ultrasonography of Right and Left Heart (ICD-10-PCS; 2016-08-17)
PROC: 0JH606Z Insertion of Pacemaker, Dual Chamber into Chest Subcutaneous Tissue and Fascia, Open Approach (ICD-10-PCS; principal; 2016-08-19)
PROC: 02HK3JZ Insertion of Pacemaker Lead into Right Ventricle, Percutaneous Approach (ICD-10-PCS; 2016-08-19)
PROC: 02H63JZ Insertion of Pacemaker Lead into Right Atrium, Percutaneous Approach (ICD-10-PCS; 2016-08-19)
DX: I44.2 Atrioventricular block, complete (principal); E05.90 Thyrotoxicosis, unspecified without thyrotoxic crisis or storm; I10 Essential (primary) hypertension; J43.9 Emphysema, unspecified; E78.00 Pure hypercholesterolemia, unspecified; K21.9 Gastro-esophageal reflux disease without esophagitis; F41.9 Anxiety disorder, unspecified; Z72.0 Tobacco use
CPT/HCPCS: 33208; 36415; 71010; 80048; 80053; 80061; 83735; 84439; 84443; 84481; 84484; 85025; 85027; 85610; 85730; 87641; 93005; 93306; 94640; 99284; 99406; C1785; C1898; J0461; J0690; J2001; J2250; J3010; J3490; J7620